=== PATIENT | female | born 1950 | race Caucasian/White ===

== ENCOUNTER 2020-03-14 13:27 | Inpatient (IN) ==
[2020-03-14] MEDS ORDERED: LACTATED RINGERS 1,000 ML IV ONE (13:45)
--- NOTE | 2020-03-14 14:03 | Emergency Department Note ---
Overdose HPI General Chief Complaint: Overdose Stated Complaint: overdose Time Seen by Provider: 03/14/20 13:41 Source: patient and RN notes reviewed Mode of arrival: ambulatory Limitations: altered mental status History of Present Illness HPI Narrative: Narrative: This patient says this morning she took a handful of her fluoxetine because she wanted to sleep. She then became concerned and felt a little jittery and so came to the hospital. Unclear exactly how many she took. She has no headache nausea vomiting no cough or shortness of breath. No abdominal pain. complaint: accidental overdose Onset (ago): hour(s) Intent: wanted to go to sleep Treatments Prior to Arrival: none Related Data Home Medications Medication Instructions Recorded Confirmed alendronate 35 mg PO WEEKLY 03/14/20 03/14/20 fluoxetine 40 mg PO DAILY 03/14/20 03/14/20 hydroxyzine HCl 10 mg PO BID PRN 03/14/20 03/14/20 lisinopril 10 mg PO DAILY 03/14/20 03/14/20 lorazepam 0.5 mg PO HS PRN 03/14/20 03/14/20 Previous Rx's Medication Instructions Recorded nitrofurantoin monohyd/m-cryst 100 mg PO BID #14 cap 03/14/20 [Macrobid] Allergies Allergy/AdvReac Type Severity Reaction Status Date / Time Sulfa (Sulfonamide Allergy Hives Verified 03/14/20 13:29 Antibiotics) Review of Systems ROS ROS Narrative: Narrative: All systems ED: reviewed and negative except as stated. Constitutional: Denies fever, chills and weakness Eyes: Denies vision change Cardiovascular: Denies chest pain and palpitations Respiratory: Denies shortness of breath and cough Gastrointestinal: Denies abdominal pain, nausea and vomiting Neurological: Denies headache, weakness, numbness and paresthesias [facility] Narrative Patient History Narrative: Narrative: Medical/Surgical/Family History All Active Problems (Updated 03/14/20 @ 18:08 by Judah Del Rio MD) Fall due to ice or snow (Acute) Dislocation, elbow, posterior (Acute) Elbow pain, right (Acute) Hyponatremia (Acute) Urinary tract infection (Acute) Drug overdose (Acute) Cigarette smoker (Chronic) Anxiety, generalized (Chronic) Organic dementia (Chronic) Alcohol abuse (Chronic) Self-care deficit for hygiene (Chronic) Medical History (Updated 03/14/20 @ 18:08 by Judah Del Rio MD) Alcohol abuse (Chronic) Anemia (Resolved) Anxiety, generalized (Chronic) Cigarette smoker (Chronic) Dehydration (Resolved) Dizziness and giddiness (Resolved) Nicotine withdrawal (Resolved) Organic dementia (Chronic) Self-care deficit for hygiene (Chronic) UTI (urinary tract infection) (Resolved) Social History Smoking Status: Current every day smoker Exam Narrative Narrative: Narrative: General Limitations: altered mental status Head Head: atraumatic, normocephalic and normal inspection Eye Eye: Present normal appearance, PERRL and EOMI; Absent scleral icterus, conjunctival injection and nystagmus ENT ENT: Present normal exam, normal oropharynx and mucous membranes moist Neck Neck: Present normal inspection Chest Chest: Present normal inspection and symmetric chest wall rise Respiratory Respiratory: Present normal lung sounds bilaterally; Absent respiratory distres s, rales/crackles and wheezes Cardiovascular Cardiovascular: Present regular rate, normal rhythm and normal heart sounds Adbominal Abdominal: Present soft; Absent distention and tenderness Extremities Extremities: Present normal inspection; Absent pedal edema and pretibial edema Neurological Neurological: Present alert Psychiatric Psychiatric: Present flat affect Skin Skin: Present diaphoresis Course Vital Signs Vital signs: Vital Signs Temperature 97.1 F 03/14/20 13:33 Pulse Rate 66 03/14/20 13:33 Respiratory Rate 22 03/14/20 13:33 Blood Pressure 111/97 03/14/20 13:33 Pulse Oximetry (%) 95 03/14/20 13:33 Temperature 97.1 F 03/14/20 13:33 Pulse Rate 58 L 03/14/20 17:46 Respiratory Rate 19 03/14/20 17:46 Blood Pressure 161/82 03/14/20 17:46 Pulse Oximetry (%) 94 03/14/20 17:46 [facility] MDM Narrative Medical decision making narrative: Narrative: Poison control was contacted and suggested we monitor the patient for about 6 ho urs. They were concerned about prolonged QT interval. Her first EKG showed slight prolongation but a second EKG a number of hours later did not show any evidence of that. She was hydrated and her urinary tract infection was treated with Levaquin. She requested some Prilosec and a GI cocktail for heartburn and that was given. Lab Data Lab results reviewed: Yes I reviewed the patient's lab results. Lab results narrative: Patient's lab work was unremarkable except for a urinary tract infection and signs of dehydration. Result diagrams: 03/14/20 14:00 03/14/20 14:00 Labs: Lab Results 03/14/20 03/14/20 03/14/20 Range/Units 14:00 14:00 14:20 WBC 11.2 H (4.50-11.00) K/mcL RBC 4.19 (3.59-5.38) M/mcL Hgb 13.6 (11.2-15.7) g/dL Hct 40.5 (34.1-44.9) % MCV 96.7 (80.0-100.0) fL MCH 32.5 (26.0-34.0) pg MCHC 33.6 (31.0-36.0) g/dL RDW 13.0 (11.5-14.5) % Plt Count 191 (140-440) K/mcL MPV 9.2 (7.4-10.4) fL Gran % 86.2 H (38.0-78.0) % Lymph % (Auto) 7.9 L (15.5-49.0) % [place] % (Auto) 5.6 (1.0-12.0) % Eos % (Auto) 0.1 (0.0-7.0) % Baso % (Auto) 0.2 (0.0-2.0) % Gran # 9.63 H (1.80-8.00) K/mcL Lymph # (Auto) 0.88 L (1.50-4.80) K/mcL [place] # (Auto) 0.62 (0.10-0.90) K/mcL Eos # (Auto) 0.01 (0.00-0.70) K/mcL Baso # (Auto) 0.02 (0.00-0.30) K/mcL VBG Lactic Acid (0.5-2.0) mmol/L Sodium 132 L (133-145) mmol/L Potassium 4.2 (3.3-5.1) mmol/L Chloride 95 L (96-108) mmol/L Carbon Dioxide 16 L (22-30) mmol/L Anion Gap 21.0 H (8-16) BUN 21 (8-23) mg/dl Creatinine 1.2 H (0.6-1.1) mg/dl GFR Calculation 45 Glucose 106 H (70-105) mg/dL Calcium 9.6 (8.6-10.4) mg/dl Total Bilirubin 0.4 (0.0-1.0) mg/dL AST 94 H (0-37) U/l ALT 100 H (0-40) U/l Alkaline Phosphatase 52 (39-117) U/L Total Protein 7.3 (5.9-8.4) gm/dL Albumin 4.4 (3.2-5.2) gm/dL Globulin 2.9 (2.2-3.7) gm/dL Albumin/Globulin Ratio 1.5 (1.0-2.3) Urine Color Urine Appearance Urine pH (5.0-9.0) Ur Specific [place] (1.000-1.035) Urine Protein (NEG) mg/dL Urine Glucose (UA) (NEG) mg/dL Urine Ketones (NEG) mg/dL Urine Occult Blood (<0.03) mg/dL Urine Nitrate (NEG) Urine Bilirubin (NEG) mg/dL Urine Urobilinogen (NEG) mg/dL Ur Leukocyte Esterase (NEG) /uL Urine RBC (0-1) /hpf Urine WBC (0-4) /hpf Ur Squamous Epith Cells (0-4) /hpf Urine Bacteria (0) /hpf Urine Mucus (0) /hpf Ur Culture Indicated? Salicylates mg/dL Urine Opiates Screen None detected (NONDETECTED) Ur Oxycodone Screen None detected (NONDETECTED) Urine Methadone Screen None detected (NONDETECTED) Acetaminophen ug/mL Ur Barbiturates Screen None detected (NONDETECTED) Ur Phencyclidine Scrn None detected (NONDETECTED) Ur Amphetamines Screen None detected (NONDETECTED) U Benzodiazepines Scrn None detected (NONDETECTED) Urine Cocaine Screen None detected (NONDETECTED) U Marijuana (THC) Screen None detected (NONDETECTED) Ethyl Alcohol (<0.010) gm/dl 03/14/20 03/14/20 03/14/20 Range/Units 14:20 14:24 14:24 WBC (4.50-11.00) K/mcL RBC (3.59-5.38) M/mcL Hgb (11.2-15.7) g/dL Hct (34.1-44.9) % MCV (80.0-100.0) fL MCH (26.0-34.0) pg MCHC (31.0-36.0) g/dL RDW (11.5-14.5) % Plt Count (140-440) K/mcL MPV (7.4-10.4) fL Gran % (38.0-78.0) % Lymph % (Auto) (15.5-49.0) % [place] % (Auto) (1.0-12.0) % Eos % (Auto) (0.0-7.0) % Baso % (Auto) (0.0-2.0) % Gran # (1.80-8.00) K/mcL Lymph # (Auto) (1.50-4.80) K/mcL [place] # (Auto) (0.10-0.90) K/mcL Eos # (Auto) (0.00-0.70) K/mcL Baso # (Auto) (0.00-0.30) K/mcL VBG Lactic Acid (0.5-2.0) mmol/L Sodium (133-145) mmol/L Potassium (3.3-5.1) mmol/L Chloride (96-108) mmol/L Carbon Dioxide (22-30) mmol/L Anion Gap (8-16) BUN (8-23) mg/dl Creatinine (0.6-1.1) mg/dl GFR Calculation Glucose (70-105) mg/dL Calcium (8.6-10.4) mg/dl Total Bilirubin (0.0-1.0) mg/dL AST (0-37) U/l ALT (0-40) U/l Alkaline Phosphatase (39-117) U/L Total Protein (5.9-8.4) gm/dL Albumin (3.2-5.2) gm/dL Globulin (2.2-3.7) gm/dL Albumin/Globulin Ratio (1.0-2.3) Urine Color Yellow Urine Appearance Cloudy Urine pH 5.0 (5.0-9.0) Ur Specific [place] 1.014 (1.000-1.035) Urine Protein 100 A (NEG) mg/dL Urine Glucose (UA) Negative (NEG) mg/dL Urine Ketones 5/tr A (NEG) mg/dL Urine Occult Blood Neg (<0.03) mg/dL Urine Nitrate Pos A (NEG) Urine Bilirubin Neg (NEG) mg/dL Urine Urobilinogen Neg (NEG) mg/dL Ur Leukocyte Esterase 500 A (NEG) /uL Urine RBC 0 (0-1) /hpf Urine WBC > 182 H (0-4) /hpf Ur Squamous Epith Cells 0 (0-4) /hpf Urine Bacteria Few A (0) /hpf Urine Mucus Few (0) /hpf Ur Culture Indicated? Yes Salicylates < 0.3 mg/dL Urine Opiates Screen (NONDETECTED) Ur Oxycodone Screen (NONDETECTED) Urine Methadone Screen (NONDETECTED) Acetaminophen < 5.0 ug/mL Ur Barbiturates Screen (NONDETECTED) Ur Phencyclidine Scrn (NONDETECTED) Ur Amphetamines Screen (NONDETECTED) U Benzodiazepines Scrn (NONDETECTED) Urine Cocaine Screen (NONDETECTED) U Marijuana (THC) Screen (NONDETECTED) Ethyl Alcohol < 0.010 (<0.010) gm/dl 03/14/20 Range/Units 15:55 WBC (4.50-11.00) K/mcL RBC (3.59-5.38) M/mcL Hgb (11.2-15.7) g/dL Hct (34.1-44.9) % MCV (80.0-100.0) fL MCH (26.0-34.0) pg MCHC (31.0-36.0) g/dL RDW (11.5-14.5) % Plt Count (140-440) K/mcL MPV (7.4-10.4) fL Gran % (38.0-78.0) % Lymph % (Auto) (15.5-49.0) % [place] % (Auto) (1.0-12.0) % Eos % (Auto) (0.0-7.0) % Baso % (Auto) (0.0-2.0) % Gran # (1.80-8.00) K/mcL Lymph # (Auto) (1.50-4.80) K/mcL [place] # (Auto) (0.10-0.90) K/mcL Eos # (Auto) (0.00-0.70) K/mcL Baso # (Auto) (0.00-0.30) K/mcL VBG Lactic Acid 0.7 (0.5-2.0) mmol/L Sodium (133-145) mmol/L Potassium (3.3-5.1) mmol/L Chloride (96-108) mmol/L Carbon Dioxide (22-30) mmol/L Anion Gap (8-16) BUN (8-23) mg/dl Creatinine (0.6-1.1) mg/dl GFR Calculation Glucose (70-105) mg/dL Calcium (8.6-10.4) mg/dl Total Bilirubin (0.0-1.0) mg/dL AST (0-37) U/l ALT (0-40) U/l Alkaline Phosphatase (39-117) U/L Total Protein (5.9-8.4) gm/dL Albumin (3.2-5.2) gm/dL Globulin (2.2-3.7) gm/dL Albumin/Globulin Ratio (1.0-2.3) Urine Color Urine Appearance Urine pH (5.0-9.0) Ur Specific [place] (1.000-1.035) Urine Protein (NEG) mg/dL Urine Glucose (UA) (NEG) mg/dL Urine Ketones (NEG) mg/dL Urine Occult Blood (<0.03) mg/dL Urine Nitrate (NEG) Urine Bilirubin (NEG) mg/dL Urine Urobilinogen (NEG) mg/dL Ur Leukocyte Esterase (NEG) /uL Urine RBC (0-1) /hpf Urine WBC (0-4) /hpf Ur Squamous Epith Cells (0-4) /hpf Urine Bacteria (0) /hpf Urine Mucus (0) /hpf Ur Culture Indicated? Salicylates mg/dL Urine Opiates Screen (NONDETECTED) Ur Oxycodone Screen (NONDETECTED) Urine Methadone Screen (NONDETECTED) Acetaminophen ug/mL Ur Barbiturates Screen (NONDETECTED) Ur Phencyclidine Scrn (NONDETECTED) Ur Amphetamines Screen (NONDETECTED) U Benzodiazepines Scrn (NONDETECTED) Urine Cocaine Screen (NONDETECTED) U Marijuana (THC) Screen (NONDETECTED) Ethyl Alcohol (<0.010) gm/dl Discharge Plan Patient/Caregiver Discharge Instructions Pt seen by COMMUNITY RELATIONS ASSISTANT/PA only: No Clinical Impression: Urinary tract infection Qualifiers: Urinary tract infection type: acute cystitis Hematuria presence: without hematuria Qualified Code(s): N30.00 - Acute cystitis without hematuria Drug overdose Qualifiers: Encounter type: initial encounter Injury intent: accidental or unintentional Qualified Code(s): T50.901A - Poisoning by unspecified drugs, medicaments and biological substances, accidental (unintentional), initial encounter Instructions: Urinary Tract Infection in Women (ED) Patient Disposition: Home, Self-Care Follow up with: Juanita Alexis ARNP [Primary Care Provider] - Prescriptions: New nitrofurantoin monohyd/m-cryst [Macrobid] 100 mg capsule 100 mg PO BID Qty: 14 RF: 0 No Action alendronate 35 mg tablet 35 mg PO WEEKLY RF: 0 lorazepam 0.5 mg tablet 0.5 mg PO HS PRN (Reason: Sleep) RF: 0 lisinopril 10 mg tablet 10 mg PO DAILY RF: 0 hydroxyzine HCl 10 mg tablet 10 mg PO BID PRN (Reason: Anxiety) RF: 0 fluoxetine 20 mg capsule 40 mg PO DAILY RF: 0
[2020-03-14 14:41] LABS: Basophils # (Auto) 0.02 K/mcL (0.00-0.30); Basophils % (Auto) 0.2 % (0.0-2.0); Eosinophils # (Auto) 0.01 K/mcL (0.00-0.70); Eosinophils % (Auto) 0.1 % (0.0-7.0); Granulocytes % (Auto) 86.2 % (38.0-78.0); Hematocrit 40.5 % (34.1-44.9); Hemoglobin 13.6 g/dL (11.2-15.7); Lymphocytes # (Auto) 0.88 K/mcL (1.50-4.80); Lymphocytes % (Auto) 7.9 % (15.5-49.0); Mean Cell Volume 96.7 fL (80.0-100.0); Mean Corpuscular HGB Conc 33.6 g/dL (31.0-36.0); Mean Platelet Volume 9.2 fL (7.4-10.4); Monocytes # (Auto) 0.62 K/mcL (0.10-0.90); Monocytes % (Auto) 5.6 % (1.0-12.0); Platelet Count 191 K/mcL (140-440); RBC 4.19 M/mcL (3.59-5.38); WBC 11.2 K/mcL (4.50-11.00)
[2020-03-14 14:55] LABS: Alcohol, Blood < 10.0 mg/dL (<10); Alcohol,Blood < 0.010 gm/dl (<0.010)
[2020-03-14 14:59] LABS: Amphetamine Screen,Urine NONE DETECTED (NONDETECTED); Barbiturate Screen,Urine NONE DETECTED (NONDETECTED); Benzodiazepines Screen,Urine NONE DETECTED (NONDETECTED); Cannabinoid Screen,Urine NONE DETECTED (NONDETECTED); Cocaine Screen,Urine NONE DETECTED (NONDETECTED); Opiate Screen,Urine NONE DETECTED (NONDETECTED); Oxycodone, Urine Screen NONE DETECTED (NONDETECTED); Phencyclidine Screen,Urine NONE DETECTED (NONDETECTED)
[2020-03-14 15:01] LABS: Acetaminophen < 5.0 ug/mL; Salicylate < 0.3 mg/dL
[2020-03-14 15:04] LABS: ALT/SGPT 100 U/l (0-40); AST/SGOT 94 U/l (0-37); Albumin 4.4 gm/dL (3.2-5.2); Albumin/Globulin Ratio 1.5 (1.0-2.3); Alkaline Phosphatase 52 U/L (39-117); Bilirubin,Total 0.4 mg/dL (0.0-1.0); Blood Urea Nitrogen 21 mg/dl (8-23); Calcium 9.6 mg/dl (8.6-10.4); Carbon Dioxide 16 mmol/L (22-30); Globulin 2.9 gm/dL (2.2-3.7); Glomerular Filtration Rate 45; Glucose 106 mg/dL (70-105)
[2020-03-14 15:06] LABS: Appearance,Urine CLOUDY; Bacteria,Urine FEW /hpf (0); Bilirubin,Urine NEG (NEG); Color,Urine YELLOW; Culture Indicated,Urine YES; Glucose,Urine (UA) NEGATIVE (NEG); Ketones,Urine 5/TR mg/dL (NEG); Leukocyte Esterase,Urine 500 /uL (NEG); Mucus,Urine FEW /hpf (0); Nitrate,Urine POS (NEG); Protein,Urine 100 mg/dL (NEG); Specific Gravity,Urine 1.014 (1.000-1.035); Urine Blood NEG mg/dL (<0.03); Urine RBC 0 /hpf (0-1); Urine Squamous Epithelial Cell 0 /hpf (0-4); Urine WBC > 182 /hpf (0-4); Urobilinogen,Urine NEG (NEG)
[2020-03-14 15:07] LABS: Chloride 95 mmol/L (96-108)
[2020-03-14] MEDS ORDERED: LEVOFLOXACIN 750 MG/150 ML BAG IV ONE (15:44)
[2020-03-14] MEDS ORDERED: PHENobarb/HYOSCY/ATROPINE/SCOP 1 DOSE BOTTLE PO ONE (17:10)
[2020-03-14] MEDS ORDERED: PANTOPRAZOLE 40 MG VIAL IV ONE (17:11)
--- NOTE | 2020-03-14 20:10 | Internal Med History&Physical ---
HPI History of Present Illness Patient information: Note initiated : 03/14/20 at 7:48 pm Service Date, if different from initiated Date: [] Patient: Nithya Shrestha a 69 y/o F admitted on for overdose. Chief Complaint: [] History of present illness: Ms. Shrestha is a 69 year old F presents the ED after taking extra doses of her fluoxetine. Patient does have insomnia and does have Lorazepam prescription for 0.5 mg at night as needed. Every once while she has a difficult night sleep and then chills catch up during the day. Last night she says she was up and down but did not know why she had such a bad sleep she also did not take her fluoxetine or other medications last night. Today about 11 AM she was really tired and wanted to go to sleep so she took her fluoxetine because she missed that the previous night and also felt that it would help her go to sleep so she took a few more and then some more after that they can the first ones did not help. She says she was tired and did not realize how many she was taking and she is in the habi t of putting in her mouth when she puts them in her hand. He believes she took anywhere between 6 and 10 pills. And these are 20 mg tablets she says. She called ems because she was concerned that she took so many. She states her arms and legs feel heavy and that this happens sometimes when she takes fluoxetine. She denies any headache fever chills nausea vomiting diarrhea chest pain. She has a little bit of a lower achy abdominal pain but no other complaints. In the ED she was evaluated and she had a mildly prolonged QTC on the first EKG which shortened on subsequent EKG. Poison control was contacted from the ED. Labs are concerning for volume depletion and she also had symptoms of dysuria and had a positive urinalysis. She was given IV fluids and a prescription for an antibiotic and would was getting ready to discharge but when she got up to go she was very weak and unstable on her feet and felt like she would easily fall. She lives alone at home and is felt it was an unsafe discharge. Review of Systems: Pertinent positive as above, chronic cough. Denies headache/fever/chills/nausea/vomiting/chest pain/dyspnea/diarrhea. Remaining 10 point review of system reviewed negative PFSH PFSH All Active Problems (Updated 03/14/20 @ 18:08 by Judah Del Rio MD) Fall due to ice or snow (Acute) Dislocation, elbow, posterior (Acute) Elbow pain, right (Acute) Hyponatremia (Acute) Urinary tract infection (Acute) Drug overdose (Acute) Cigarette smoker (Chronic) Anxiety, generalized (Chronic) Organic dementia (Chronic) Alcohol abuse (Chronic) Self-care deficit for hygiene (Chronic) Medical History (Updated 03/14/20 @ 18:08 by Judah Del Rio MD) Alcohol abuse (Chronic) Anemia (Resolved) Anxiety, generalized (Chronic) Cigarette smoker (Chronic) Dehydration (Resolved) Dizziness and giddiness (Resolved) Nicotine withdrawal (Resolved) Organic dementia (Chronic) Self-care deficit for hygiene (Chronic) UTI (urinary tract infection) (Resolved) Social History (Updated 03/14/20 @ 19:53 by Vern Tsang DO) smoking status: Current every day smoker additional history: Surgical history: Hernia repair and Family history: Mother diabetes in father hypertension Social history: Patient smokes quarter pack of cigarettes per day Has 1 beer a week Lives at home by herself in an apartment. MEDS/ALLERGIES Home Medications and Allergies Home Medications Medication Instructions Recorded Confirmed Type alendronate 35 mg PO WEEKLY 03/14/20 03/14/20 History fluoxetine 40 mg PO DAILY 03/14/20 03/14/20 History hydroxyzine HCl 10 mg PO BID PRN 03/14/20 03/14/20 History lisinopril 10 mg PO DAILY 03/14/20 03/14/20 History lorazepam 0.5 mg PO HS PRN 03/14/20 03/14/20 History nitrofurantoin monohyd/m-cryst 100 mg PO BID #14 cap 03/14/20 Rx [Macrobid] Allergies Allergy/AdvReac Type Severity Reaction Status Date / Time Sulfa (Sulfonamide Allergy Hives Verified 03/14/20 13:29 Antibiotics) EXAM Constitutional Vitals: Temp Pulse Resp BP Pulse Ox 97.1 F 62 18 124/73 98 03/14/20 13:33 03/14/20 19:31 03/14/20 19:31 03/14/20 19:31 03/14/20 19:31 Exam: General: Alert, Awake, No acute Distress Eyes/N/T: EOMI, PERRL, horizontal nystagmus, dry MM Head/Neck: neck supple, normocephalic atraumatic CV: RRR, No murmurs, normal s1/s2 Pulm: Clear b/l, no wheezing/rhonchi/rales Abd: soft, nontender, +BS x4 Ext: no clubbing/cyanosis/edema Neuro: Alert, no focal deficits, moves all extremities, CN 2-12 grossly intact, symmetrical strength b/l upper/lower, sensations intact b/l upper/lower. Skin: warm/dry No agitation hyperthermia diaphoresis hypertonia tremor or other signs concerning for serotonin syndrome. DATA Data Completed and Pending Labs: Labs from last 24 hours 03/14/20 03/14/20 03/14/20 15:55 14:24 14:24 WBC RBC Hgb Hct MCV MCH MCHC RDW Plt Count MPV Gran % Lymph % (Auto) [place] % (Auto) Eos % (Auto) Baso % (Auto) Gran # Lymph # (Auto) [place] # (Auto) Eos # (Auto) Baso # (Auto) VBG Lactic Acid 0.7 Sodium Potassium Chloride Carbon Dioxide Anion Gap BUN Creatinine GFR Calculation Glucose Calcium Total Bilirubin AST ALT Alkaline Phosphatase Total Protein Albumin Globulin Albumin/Globulin Ratio Urine Color Urine Appearance Urine pH Ur Specific [place] Urine Protein Urine Glucose (UA) Urine Ketones Urine Occult Blood Urine Nitrate Urine Bilirubin Urine Urobilinogen Ur Leukocyte Esterase Urine RBC Urine WBC Ur Squamous Epith Cells Urine Bacteria Urine Mucus Ur Culture Indicated? Salicylates < 0.3 Urine Opiates Screen Ur Opiates Confirm Ur Oxycodone Screen Urine Methadone Screen Ur Methadone Confirm Acetaminophen < 5.0 Ur Barbiturates Screen Ur Barbiturate Confirm Ur Phencyclidine Scrn Urine PCP Confirm Ur Amphetamines Screen U Amphetamines Confirm U Benzodiazepines Scrn U Benzodiazepine Confm Urine Cocaine Screen Urine Cocaine Confirm U Cannabinoids Confirm U Marijuana (THC) Screen Ethyl Alcohol < 0.010 03/14/20 03/14/20 03/14/20 14:20 14:20 14:00 WBC RBC Hgb Hct MCV MCH MCHC RDW Plt Count MPV Gran % Lymph % (Auto) [place] % (Auto) Eos % (Auto) Baso % (Auto) Gran # Lymph # (Auto) [place] # (Auto) Eos # (Auto) Baso # (Auto) VBG Lactic Acid Sodium 132 L Potassium 4.2 Chloride 95 L Carbon Dioxide 16 L Anion Gap 21.0 H BUN 21 Creatinine 1.2 H GFR Calculation 45 Glucose 106 H Calcium 9.6 Total Bilirubin 0.4 AST 94 H ALT 100 H Alkaline Phosphatase 52 Total Protein 7.3 Albumin 4.4 Globulin 2.9 Albumin/Globulin Ratio 1.5 Urine Color Yellow Urine Appearance Cloudy Urine pH 5.0 Ur Specific [place] 1.014 Urine Protein 100 A Urine Glucose (UA) Negative Urine Ketones 5/tr A Urine Occult Blood Neg Urine Nitrate Pos A Urine Bilirubin Neg Urine Urobilinogen Neg Ur Leukocyte Esterase 500 A Urine RBC 0 Urine WBC > 182 H Ur Squamous Epith Cells 0 Urine Bacteria Few A Urine Mucus Few Ur Culture Indicated? Yes Salicylates Urine Opiates Screen None detected Ur Opiates Confirm Not Reportable Ur Oxycodone Screen None detected Urine Methadone Screen None detected Ur Methadone Confirm Not Reportable Acetaminophen Ur Barbiturates Screen None detected Ur Barbiturate Confirm Not Reportable Ur Phencyclidine Scrn None detected Urine PCP Confirm Not Reportable Ur Amphetamines Screen None detected U Amphetamines Confirm Not Reportable U Benzodiazepines Scrn None detected U Benzodiazepine Confm Not Reportable Urine Cocaine Screen None detected Urine Cocaine Confirm Not Reportable U Cannabinoids Confirm Not Reportable U Marijuana (THC) Screen None detected Ethyl Alcohol 03/14/20 14:00 WBC 11.2 H RBC 4.19 Hgb 13.6 Hct 40.5 MCV 96.7 MCH 32.5 MCHC 33.6 RDW 13.0 Plt Count 191 MPV 9.2 Gran % 86.2 H Lymph % (Auto) 7.9 L [place] % (Auto) 5.6 Eos % (Auto) 0.1 Baso % (Auto) 0.2 Gran # 9.63 H Lymph # (Auto) 0.88 L [place] # (Auto) 0.62 Eos # (Auto) 0.01 Baso # (Auto) 0.02 VBG Lactic Acid Sodium Potassium Chloride Carbon Dioxide Anion Gap BUN Creatinine GFR Calculation Glucose Calcium Total Bilirubin AST ALT Alkaline Phosphatase Total Protein Albumin Globulin Albumin/Globulin Ratio Urine Color Urine Appearance Urine pH Ur Specific [place] Urine Protein Urine Glucose (UA) Urine Ketones Urine Occult Blood Urine Nitrate Urine Bilirubin Urine Urobilinogen Ur Leukocyte Esterase Urine RBC Urine WBC Ur Squamous Epith Cells Urine Bacteria Urine Mucus Ur Culture Indicated? Salicylates Urine Opiates Screen Ur Opiates Confirm Ur Oxycodone Screen Urine Methadone Screen Ur Methadone Confirm Acetaminophen Ur Barbiturates Screen Ur Barbiturate Confirm Ur Phencyclidine Scrn Urine PCP Confirm Ur Amphetamines Screen U Amphetamines Confirm U Benzodiazepines Scrn U Benzodiazepine Confm Urine Cocaine Screen Urine Cocaine Confirm U Cannabinoids Confirm U Marijuana (THC) Screen Ethyl Alcohol A/P Narrative A/P Narrative: A: *Generalized weakness/deconditioning/fall risk with unsteadiness on her feet: 2/2 volume depletion/uti/polypharmacy *SSRI Overdose on fluoxetine: States she took between 6 and 8 tablets to help her sleep, these are 20 mg pills. -In reviewing literature fluoxetine tends to be well-tolerated with ingestions of 2-3grams causing only minimal symptoms -Qtc ok, Poison control contacted from the ED. *Insomnia: on ativan qhs prn *Volume depletion: *Hyponatremia: *metabolic acidosis, AG: possibly starvation ketoacidosis -salicylates/apap levels ok, BAL neg. lactate wnl -ketones noted in urine *UTI: *mild transaminitis: *HTN P: -IVF's -f/u chemistry -prn benzo -rocephin pending UC - - -pt/ot -ppx: lovenox DNR Time Spent With Patient Time: Total time spent is greater than 50% in coordination of care (as docum ented) at patient's floor/unit and/or counseling patient:
[2020-03-14] MEDS ORDERED: cefTRIAXone 1 GM in DEXTROSE 5% IN WATER 50 ML IV SCH (21:06)
[2020-03-14] MEDS ORDERED: SENNOSIDES 1 TABLET PO PRN (21:06)
[2020-03-14] MEDS ORDERED: IPRATROPIUM/ALBUTEROL 3 ML AMPUL.NEB NEB PRN (21:06)
[2020-03-14] MEDS ORDERED: ONDANSETRON 4 MG/2 ML VIAL IV PRN (21:06)
[2020-03-14] MEDS ORDERED: LACTULOSE 20 GM/30 ML ORAL.SOL PO PRN (21:06)
[2020-03-14] MEDS ORDERED: hydrOXYzine 10 MG TABLET PO PRN (21:06)
[2020-03-14] MEDS ORDERED: LACTATED RINGERS 1,000 ML IV SCH (21:06)
[2020-03-14] MEDS: 0.9 % SODIUM CHLORIDE 10 ML SYRINGE IV SCH (22:26)
[2020-03-14] MEDS: cefTRIAXone 1 GM VIAL IV SCH (22:29)
[2020-03-14] MEDS: DOCUSATE SODIUM 100 MG CAPSULE PO SCH (22:30)
[2020-03-14] MEDS: MELATONIN 3 MG TABLET PO SCH (22:30)
[2020-03-15] MEDS: LORazepam 0.5 MG TABLET PO PRN ×2 (00:26→20:17)
[2020-03-15] MEDS: 0.9 % SODIUM CHLORIDE 10 ML SYRINGE IV SCH ×3 (05:33→20:17)
[2020-03-15 06:49] LABS: Basophils # (Auto) 0.03 K/mcL (0.00-0.30); Basophils % (Auto) 0.4 % (0.0-2.0); Eosinophils # (Auto) 0.04 K/mcL (0.00-0.70); Eosinophils % (Auto) 0.6 % (0.0-7.0); Granulocytes % (Auto) 75.2 % (38.0-78.0); Hematocrit 35.8 % (34.1-44.9); Hemoglobin 11.9 g/dL (11.2-15.7); Lymphocytes # (Auto) 1.04 K/mcL (1.50-4.80); Lymphocytes % (Auto) 15.4 % (15.5-49.0); Mean Cell Volume 99.7 fL (80.0-100.0); Mean Corpuscular HGB Conc 33.2 g/dL (31.0-36.0); Mean Platelet Volume 9.4 fL (7.4-10.4); Monocytes # (Auto) 0.57 K/mcL (0.10-0.90); Monocytes % (Auto) 8.4 % (1.0-12.0); Platelet Count 154 K/mcL (140-440); RBC 3.59 M/mcL (3.59-5.38); Red Cell Distribution Width 13.4 % (11.5-14.5); WBC 6.8 K/mcL (4.50-11.00)
[2020-03-15 07:05] LABS: Bilirubin,Direct < 0.2 mg/dL (0.0-0.3); Chloride 98 mmol/L (96-108)
[2020-03-15 07:14] LABS: ALT/SGPT 76 U/l (0-40); AST/SGOT 62 U/l (0-37); Albumin 3.6 gm/dL (3.2-5.2); Albumin/Globulin Ratio 1.7 (1.0-2.3); Alkaline Phosphatase 43 U/L (39-117); Bilirubin,Total 0.3 mg/dL (0.0-1.0); Blood Urea Nitrogen 17 mg/dl (8-23); Calcium 8.4 mg/dl (8.6-10.4); Carbon Dioxide 17 mmol/L (22-30); Globulin 2.1 gm/dL (2.2-3.7); Glomerular Filtration Rate 64; Glucose 94 mg/dL (70-105); Lactate Dehydrogenase 298 U/L (94-250); Phosphorous 2.3 mg/dL (2.7-4.5); Triglycerides 74 mg/dl (<150); Uric Acid 6.2 mg/dL (2.5-8.0)
[2020-03-15] MEDS ORDERED: SODIUM CHLORIDE 1 GM TABLET PO ONE (08:33)
--- NOTE | 2020-03-15 08:35 | Internal Med Progress Note ---
SUBJECTIVE Subjective Patient information: Note initiated : 03/15/20 at 8:30 am Service Date, if different from initiated Date: [] Patient: Nithya Shrestha a 69 y/o F admitted on 03/14/20 for overdose. Chief Complaint: [] Interval history: History of present illness: Ms. Shrestha is a 69 year old F presents the ED after taking extra doses of her fluoxetine. Patient does have insomnia and does have Lorazepam prescription for 0.5 mg at night as needed. Every once while she has a difficult night sleep and then chills catch up during the day. Last night she says she was up and down but did not know why she had such a bad sleep she also did not take her fluoxetine or other medications last night. Today about 11 AM she was really tired and wanted to go to sleep so she took her fluoxetine because she missed that the previous night and also felt that it would help her go to sleep so she took a few more and then some more after that they can the first ones did not help. She says she was tired and did not realize how many she was taking and she is in the habit of putting in her mouth when she puts them in her hand. He believes she took anywhere between 6 and 10 pills. And these are 20 mg tablets she says. She called ems because she was concerned that she took so many. She states her arms and legs feel heavy and that this happens sometimes when she takes fluoxetine. She denies any headache fever chills nausea vomiting diarrhea chest pain. She has a little bit of a lower achy abdominal pain but no other complaints. In the ED she was evaluated and she had a mildly prolonged QTC on the first EKG which shortened on subsequent EKG. Poison control was contacted from the ED. Labs are concerning for volume depletion and she also had symptoms of dysuria and had a positive urinalysis. She was given IV fluids and a prescription for an antibiotic and would was getting ready to discharge but when she got up to go she was very weak and unstable on her feet and felt like she would easily fall. She lives alone at home and is felt it was an unsafe discharge. 9/7 Still weak but feels better overall. Poor sleep last night. No seizures. Review of Systems: denies headache/fever/chills/nausea/vomiting/chest or abdominal pain/c ough/dyspnea/diarrhea. Otherwise see above. Constitutional Vitals: Vital Signs Temp Pulse Resp BP Pulse Ox 97.3 F 57 L 18 141/56 97 03/15/20 08:01 03/15/20 08:01 03/15/20 08:01 03/15/20 08:01 03/15/20 08:01 Period Temp Pulse Resp BP Sys/[place] Pulse Ox Last 24 Hr 97.0 F-98.7 F 57-67 12-22 106-166/56-119 93-98 Intake and Output 03/14/20 03/15/20 03/15/20 21:59 05:59 13:59 Intake Total 1150 200 Output Total 500 Balance 1150 -300 Weight 70.216 kg Intake & Output: Intake & Output 03/14/20 03/15/20 03/15/20 21:59 05:59 13:59 Intake Total 1150 200 Output Total 500 Balance 1150 -300 Weight 70.216 kg Intake: IV 1150 Lactated Ringers 1,000 ml @ 1000 Wide Open IV BOLUS ONE Rx#: [id number] Oral 200 Output: Void Amount 500 Other: Meal snack Percent of Meal Consumed 50% Feeding Ability Independent Urine Appearance Cloudy Cloudy Urine Color Bright Yellow Bright Yellow # Bowel Movements 0 Exam: General: Alert, Awake, No acute Distress Eyes/N/T: EOMI, PERRL, Head/Neck: neck supple, CV: RRR, No murmurs, Pulm: Clear b/l, no wheezing/rhonchi/rales Abd: soft, nontender, +BS x4 Ext: no clubbing/cyanosis/edema Neuro: Alert, no focal deficits, moves all extremities, Skin: warm/dry OBJ DATA Labs CBC & Chem 7: 03/15/20 05:15 03/15/20 05:15 Labs: Abnormal Lab Results 03/15/20 03/15/20 03/14/20 05:15 05:15 14:20 WBC Gran % Lymph % (Auto) 15.4 L Gran # Lymph # (Auto) 1.04 L Sodium 129 L Chloride Carbon Dioxide 17 L Anion Gap Creatinine Glucose Calcium 8.4 L Phosphorus 2.3 L AST 62 H ALT 76 H Lactate Dehydrogenase 298 H Total Protein 5.7 L Globulin 2.1 L Urine Protein 100 A Urine Ketones 5/tr A Urine Nitrate Pos A Ur Leukocyte Esterase 500 A Urine WBC > 182 H Urine Bacteria Few A 03/14/20 03/14/20 14:00 14:00 WBC 11.2 H Gran % 86.2 H Lymph % (Auto) 7.9 L Gran # 9.63 H Lymph # (Auto) 0.88 L Sodium 132 L Chloride 95 L Carbon Dioxide 16 L Anion Gap 21.0 H Creatinine 1.2 H Glucose 106 H Calcium Phosphorus AST 94 H ALT 100 H Lactate Dehydrogenase Total Protein Globulin Urine Protein Urine Ketones Urine Nitrate Ur Leukocyte Esterase Urine WBC Urine Bacteria Meds: Medications Albuterol/Ipratropium (Duoneb) 3 ml NEB Q4HRT PRN PRN Reason: dyspnea Ceftriaxone Sodium (Rocephin) 1 gm IV Q24H [facility] Last Admin: 03/14/20 22:29 Dose: 1 gm Documented by: Docusate Sodium (Colace) 100 mg PO BID [facility] Last Admin: 03/14/20 22:30 Dose: 100 mg Documented by: Enoxaparin Sodium (Lovenox) 40 mg SQ DAILY [facility] Fluoxetine HCl (Prozac) 40 mg PO DAILY [facility] Hydroxyzine HCl (Vistaril) 10 mg PO BID PRN PRN Reason: Anxiety Lactated Ringer's (Lactated Ringers) 1,000 mls @ 84 mls/hr IV .[id number] [facility] Stop: 03/15/20 09:00 Last Admin: 03/14/20 21:27 Dose: 84 mls/hr Documented by: Lactulose (Cephulac) 10 gm PO DAILYP PRN PRN Reason: Constipation Lisinopril (Zestril) 10 mg PO DAILY [facility] Lorazepam (Ativan) 0.5 mg PO HS PRN PRN Reason: Sleep Last Admin: 03/15/20 00:26 Dose: 0.5 mg Documented by: Lorazepam (Ativan) 0.5 mg IV Q4-6HP PRN PRN Reason: ANXIETY/SEDATION Melatonin (Melatonin 3mg Tablet) 3 mg PO QHS [facility] Last Admin: 03/14/20 22:30 Dose: 3 mg Documented by: Ondansetron HCl (Zofran) 4 mg IV Q4HP PRN; Protocol PRN Reason: Nausea And Vomiting Senna (Senokot) 2 tab PO HSP PRN PRN Reason: Constipation Sodium Chloride (Saline Flush) 10 ml IV Q8 [facility] Last Admin: 03/15/20 05:33 Dose: Not Given Documented by: A/P Narrative A/P Narrative: A: *Generalized weakness/deconditioning/fall risk with unsteadiness on her feet: 2/2 volume depletion/uti/polypharmacy *SSRI Overdose on fluoxetine: States she took between 6 and 8 tablets to help her sleep, these are 20 mg pills. -In reviewing literature fluoxetine tends to be well-tolerated with ingestions of 2-3grams causing only minimal symptoms -Qtc ok, Poison control contacted from the ED. *Insomnia: on ativan qhs prn *Volume depletion: improved *Hyponatremia: *metabolic acidosis, AG: possibly starvation ketoacidosis -salicylates/apap levels ok, BAL neg. lactate wnl -ketones noted in urine *UTI: *mild transaminitis: improving *HTN P: -IVF's d/c -f/u chemistry -prn benzo -rocephin pending UC - -pt/ot -ppx: lovenox DNR Time Spent With Patient Time: Total time spent is greater than 50% in coordination of care (as documented) at patient's floor/unit and/or counseling patient: QUALITY VTE Deep Vein Thrombosis/Pulmonary Embolism Present on Admission: No
[2020-03-15] MEDS: cefTRIAXone 1 GM VIAL IV SCH (09:13)
[2020-03-15] MEDS: LISINOPRIL 10 MG TABLET PO SCH (09:14)
[2020-03-15] MEDS: FLUoxetine HCL 20 MG CAPSULE PO SCH (09:15)
[2020-03-15] MEDS: SODIUM BICARBONATE 650 MG TABLET PO SCH ×2 (09:15→20:17)
[2020-03-15] MEDS: ENOXAPARIN 40 MG/0.4 ML SYRINGE SQ SCH (09:16)
[2020-03-15] MEDS: DOCUSATE SODIUM 100 MG CAPSULE PO SCH ×2 (09:30→20:16)
[2020-03-15] MEDS ORDERED: SUCRALFATE 1 GM/10 ML ORAL.SUSP PO ONE (11:09)
[2020-03-15] MEDS ORDERED: MAG HYDROX/AL HYDROX/SIMETH 30 ML ORAL.SUSP PO PRN (11:09)
--- NOTE | 2020-03-15 14:57 | Discharge Summary ---
Discharge Provider Provider Patient information: Note initiated : 03/15/20 at 2:56 pm Service Date, if different from initiated Date: [] Patient: Nithya Shrestha a 69 y/o F admitted on 03/14/20 for overdose. Chief Complaint: [] Date of admission: 03/14/20 20:55 Discharge date: 03/17/20 Primary care physician: Juanita Alexis Consults: 03/14/20 Consult to Physician [CONS] Stat Comment: Consulting Provider: Vern Tsang Reason For Exam: Physician to Consult Discharge Meds Discharge Medications Home Medications alendronate 35 mg PO WEEKLY 03/14/20 [History Confirmed 03/14/20 Last Taken 03/09/20 09:00] fluoxetine 40 mg PO DAILY 03/14/20 [History Confirmed 03/14/20 Last Taken 03/14/20 07:00] hydroxyzine HCl 10 mg PO BID PRN 03/14/20 [History Confirmed 03/14/20 Last Taken 03/07/20 07:00] lisinopril 10 mg PO HS 03/14/20 [History Confirmed 03/14/20 Last Taken 03/12/20 19:30] lorazepam 0.5 mg PO HS PRN 03/14/20 [History Confirmed 03/14/20 Last Taken 03/12/20 20:00] omeprazole 20 mg PO DAILY 03/14/20 [History Confirmed 03/14/20 Last Taken 03/12/20 06:00] COURSE Hospital Course Hospital course: Interval history: History of present illness: Ms. Shrestha is a 69 year old F presents the ED after taking extra doses of her fluoxetine. Patient does have insomnia and does have Lorazepam prescription for 0.5 mg at night as needed. Every once while she has a difficult night sleep and then chills catch up during the day. Last night she says she was up and down but did not know why she had such a bad sleep she also did not take her fluoxetine or other medications last night. Today about 11 AM she was really tired and wanted to go to sleep so she took her fluoxetine because she missed that the previous night and also felt that it would help her go to sleep so she took a few more and then some more after that they can the first ones did not help. She says she was tired and did not realize how many she was taking and she is in the habit of putting in her mouth when she puts them in her hand. He believes she took anywhere between 6 and 10 pills. And these are 20 mg tablets she says. She called ems because she was concerned that she took so many. She states her arms and legs feel heavy and that this happens sometimes when she takes fluoxetine. She denies any headache fever chills nausea vomiting diarrhea chest pain. She has a little bit of a lower achy abdominal pain but no other complaints. In the ED she was evaluated and she had a mildly prolonged QTC on the first EKG which shortened on subsequent EKG. Poison control was contacted from the ED. Labs are concerning for volume depletion and she also had symptoms of dysuria and had a positive urinalysis. She was given IV fluids and a prescription for an antibiotic and would was getting ready to discharge but when she got up to go she was very weak and unstable on her feet and felt like she would easily fall. She lives alone at home and is felt it was an unsafe discharge. 9/7 Still weak but feels better overall. Poor sleep last night. No seizures. 9/8 Confusion overnight. At time of visit her midmorning she seemed pretty clear. There is concerned that she is unable to really care for herself at home especially with taking oral medications. I wonder about an underlying psych issue or some degree of dementia. She says she feels a lot better today. Less weak. She was alert and oriented x4 when I talked to her. New history is that she did have a traumatic brain injury several years ago and the daughter says she has not been the same since. A: *Generalized weakness/deconditioning/fall risk with unsteadiness on her feet: 2/2 volume depletion/uti/polypharmacy *SSRI Overdose on fluoxetine: States she took between 6 and 8 tablets to help her sleep, these are 20 mg pills. -In reviewing literature fluoxetine tends to be well-tolerated with ingestions of 2-3grams causing only minimal symptoms -Qtc ok, Poison control contacted from the ED. *Insomnia: on ativan qhs prn *Volume depletion: improved *Hyponatremia: *metabolic acidosis, AG: possibly starvation ketoacidosis -salicylates/apap levels ok, BAL neg. lactate wnl -ketones noted in urine *UTI: *mild transaminitis: improving *HTN *TBI with cognitive impairment Discharge diagnosis: Generalized weakness deconditioning fluoxetine overdose insomnia volume dep Secondary discharge diagnosis: Hyponatremia metabolic acidosis UTI mild transaminitis hypertension Time Spent with Patient Time attestation: Total time spent providing and/or coordinating discharge services: Time spent: Greater than 30 minutes EXAM Constitutional Vitals: Temp Pulse Resp BP Pulse Ox 98.5 F 63 20 143/70 96 03/15/20 12:01 03/15/20 14:20 03/15/20 14:20 03/15/20 12:01 03/15/20 14:20 Discharge Data Data Completed and Pending Labs on day of discharge: Labs from last 24 hours 03/15/20 03/15/20 03/15/20 05:15 05:15 05:15 WBC 6.8 RBC 3.59 Hgb 11.9 Hct 35.8 MCV 99.7 MCH 33.1 MCHC 33.2 RDW 13.4 Plt Count 154 MPV 9.4 Gran % 75.2 Lymph % (Auto) 15.4 L [place] % (Auto) 8.4 Eos % (Auto) 0.6 Baso % (Auto) 0.4 Gran # 5.08 Lymph # (Auto) 1.04 L [place] # (Auto) 0.57 Eos # (Auto) 0.04 Baso # (Auto) 0.03 VBG Lactic Acid Sodium 129 L Potassium 3.8 Chloride 98 Carbon Dioxide 17 L Anion Gap 14.0 BUN 17 Creatinine 0.9 GFR Calculation 64 Glucose 94 Uric Acid 6.2 Calcium 8.4 L Phosphorus 2.3 L Magnesium 2.1 Total Bilirubin 0.3 Direct Bilirubin < 0.2 GGT 30 AST 62 H ALT 76 H Alkaline Phosphatase 43 Lactate Dehydrogenase 298 H Total Protein 5.7 L Albumin 3.6 Globulin 2.1 L Albumin/Globulin Ratio 1.7 Triglycerides 74 TSH 0.72 Urine Color Urine Appearance Urine pH Ur Specific [place] Urine Protein Urine Glucose (UA) Urine Ketones Urine Occult Blood Urine Nitrate Urine Bilirubin Urine Urobilinogen Ur Leukocyte Esterase Urine RBC Urine WBC Ur Squamous Epith Cells Urine Bacteria Urine Mucus Ur Culture Indicated? Salicylates Urine Opiates Screen Ur Opiates Confirm Ur Oxycodone Screen Urine Methadone Screen Ur Methadone Confirm Acetaminophen Ur Barbiturates Screen Ur Barbiturate Confirm Ur Phencyclidine Scrn Urine PCP Confirm Ur Amphetamines Screen U Amphetamines Confirm U Benzodiazepines Scrn U Benzodiazepine Confm Urine Cocaine Screen Urine Cocaine Confirm U Cannabinoids Confirm U Marijuana (THC) Screen 03/14/20 03/14/20 03/14/20 15:55 14:24 14:20 WBC RBC Hgb Hct MCV MCH MCHC RDW Plt Count MPV Gran % Lymph % (Auto) [place] % (Auto) Eos % (Auto) Baso % (Auto) Gran # Lymph # (Auto) [place] # (Auto) Eos # (Auto) Baso # (Auto) VBG Lactic Acid 0.7 Sodium Potassium Chloride Carbon Dioxide Anion Gap BUN Creatinine GFR Calculation Glucose Uric Acid Calcium Phosphorus Magnesium Total Bilirubin Direct Bilirubin GGT AST ALT Alkaline Phosphatase Lactate Dehydrogenase Total Protein Albumin Globulin Albumin/Globulin Ratio Triglycerides TSH Urine Color Yellow Urine Appearance Cloudy Urine pH 5.0 Ur Specific [place] 1.014 Urine Protein 100 A Urine Glucose (UA) Negative Urine Ketones 5/tr A Urine Occult Blood Neg Urine Nitrate Pos A Urine Bilirubin Neg Urine Urobilinogen Neg Ur Leukocyte Esterase 500 A Urine RBC 0 Urine WBC > 182 H Ur Squamous Epith Cells 0 Urine Bacteria Few A Urine Mucus Few Ur Culture Indicated? Yes Salicylates < 0.3 Urine Opiates Screen Ur Opiates Confirm Ur Oxycodone Screen Urine Methadone Screen Ur Methadone Confirm Acetaminophen < 5.0 Ur Barbiturates Screen Ur Barbiturate Confirm Ur Phencyclidine Scrn Urine PCP Confirm Ur Amphetamines Screen U Amphetamines Confirm U Benzodiazepines Scrn U Benzodiazepine Confm Urine Cocaine Screen Urine Cocaine Confirm U Cannabinoids Confirm U Marijuana (THC) Screen 03/14/20 03/14/20 14:20 14:00 WBC RBC Hgb Hct MCV MCH MCHC RDW Plt Count MPV Gran % Lymph % (Auto) [place] % (Auto) Eos % (Auto) Baso % (Auto) Gran # Lymph # (Auto) [place] # (Auto) Eos # (Auto) Baso # (Auto) VBG Lactic Acid Sodium 132 L Potassium 4.2 Chloride 95 L Carbon Dioxide 16 L Anion Gap 21.0 H BUN 21 Creatinine 1.2 H GFR Calculation 45 Glucose 106 H Uric Acid Calcium 9.6 Phosphorus Magnesium Total Bilirubin 0.4 Direct Bilirubin GGT AST 94 H ALT 100 H Alkaline Phosphatase 52 Lactate Dehydrogenase Total Protein 7.3 Albumin 4.4 Globulin 2.9 Albumin/Globulin Ratio 1.5 Triglycerides TSH Urine Color Urine Appearance Urine pH Ur Specific [place] Urine Protein Urine Glucose (UA) Urine Ketones Urine Occult Blood Urine Nitrate Urine Bilirubin Urine Urobilinogen Ur Leukocyte Esterase Urine RBC Urine WBC Ur Squamous Epith Cells Urine Bacteria Urine Mucus Ur Culture Indicated? Salicylates Urine Opiates Screen None detected Ur Opiates Confirm Not Reportable Ur Oxycodone Screen None detected Urine Methadone Screen None detected Ur Methadone Confirm Not Reportable Acetaminophen Ur Barbiturates Screen None detected Ur Barbiturate Confirm Not Reportable Ur Phencyclidine Scrn None detected Urine PCP Confirm Not Reportable Ur Amphetamines Screen None detected U Amphetamines Confirm Not Reportable U Benzodiazepines Scrn None detected U Benzodiazepine Confm Not Reportable Urine Cocaine Screen None detected Urine Cocaine Confirm Not Reportable U Cannabinoids Confirm Not Reportable U Marijuana (THC) Screen None detected Discharge Plan Patient/Caregiver Discharge Instructions Activity: increase activity as tolerated Diet: Regular Diet Instructions: Fluoxetine (By mouth), Urinary Tract Infection in Women (GEN), Weakness (GEN), Medication Safety for Older Adults (GEN) Activity Restrictions/Additional Instructions: [facility] with contact you after discharge. If you have any questions call We are sending information home with you on Advanced Directives and the number for Aging and Rn Emergency Room Care Please follow up with primary care physician with clarification if you have or have not received this years flu vaccine at their office. Was not administered during your stay due to this. This discharge packet is provided to you to help keep you informed about your care. We want to ensure you get everything you need when you go home. You will also be receiving a call from us in a few days to follow up with you and see how you are doing since your discharge. This gives us a chance to listen to any concerns you maybe experiencing since you were discharged or any additional needs you may have, as well as providing us feedback on your care experience. We strive to always provide excellent care and thank you for your feedback and for choosing [facility]. Prescriptions: Continued alendronate 35 mg tablet 35 mg PO WEEKLY RF: 0 lorazepam 0.5 mg tablet 0.5 mg PO HS PRN (Reason: Sleep) RF: 0 lisinopril 10 mg tablet 10 mg PO HS RF: 0 hydroxyzine HCl 10 mg tablet 10 mg PO BID PRN (Reason: Anxiety) RF: 0 fluoxetine 20 mg capsule 40 mg PO DAILY RF: 0 omeprazole 20 mg Capsule,Delayed Release(Dr/Ec) 20 mg PO DAILY RF: 0 Follow Up Plan Follow up with: Juanita Alexis ARNP [Primary Care Provider] - 03/22/20 10:00 am (Please check in 15 minutes early Please inquire about recieving a influenza vaccine.) Patient Disposition: Home Health Service Prognosis: Fair Discharge Orders: Discharge Order (Routine); Ordered 03/17/20 [facility] Th[facility]/Pulmonary Embolism Present on Admission: No
[2020-03-15] MEDS: MELATONIN 3 MG TABLET PO SCH (20:17)
[2020-03-15] MEDS: LORazepam 2 MG/ML VIAL IV PRN ×2 (23:21→23:23)
[2020-03-16] MEDS: 0.9 % SODIUM CHLORIDE 10 ML SYRINGE IV SCH ×3 (05:50→20:54)
[2020-03-16 08:01] LABS: ALT/SGPT 83 U/l (0-40); AST/SGOT 61 U/l (0-37); Albumin 3.7 gm/dL (3.2-5.2); Albumin/Globulin Ratio 1.7 (1.0-2.3); Alkaline Phosphatase 40 U/L (39-117); Bilirubin,Direct < 0.2 mg/dL (0.0-0.3); Bilirubin,Total 0.2 mg/dL (0.0-1.0); Blood Urea Nitrogen 19 mg/dl (8-23); Calcium 8.7 mg/dl (8.6-10.4); Carbon Dioxide 22 mmol/L (22-30); Chloride 102 mmol/L (96-108); Globulin 2.2 gm/dL (2.2-3.7); Glomerular Filtration Rate 74; Glucose 107 mg/dL (70-105); Lactate Dehydrogenase 270 U/L (94-250); Phosphorous 2.3 mg/dL (2.7-4.5); Triglycerides 50 mg/dl (<150); Uric Acid 5.5 mg/dL (2.5-8.0)
[2020-03-16] MEDS: DOCUSATE SODIUM 100 MG CAPSULE PO SCH ×2 (08:42→20:54)
[2020-03-16] MEDS: FLUoxetine HCL 20 MG CAPSULE PO SCH (08:43)
[2020-03-16] MEDS: ENOXAPARIN 40 MG/0.4 ML SYRINGE SQ SCH (08:43)
[2020-03-16] MEDS: OMEPRAZOLE 20 MG CAPSULE PO SCH (08:43)
[2020-03-16] MEDS: LISINOPRIL 10 MG TABLET PO SCH (08:43)
[2020-03-16] MEDS: cefTRIAXone 1 GM VIAL IV SCH (09:00)
[2020-03-16] MEDS ORDERED: FLU VACC QS2020-21(6MOS UP)/PF 60 MCG/0.5 ML SYRINGE IM ONE (10:00)
--- NOTE | 2020-03-16 10:10 | Internal Med Progress Note ---
SUBJECTIVE Subjective Patient information: Note initiated : 03/16/20 at 10:04 am Service Date, if different from initiated Date: [] Patient: Nithya Shrestha a 69 y/o F admitted on 03/14/20 for overdose. Chief Complaint: [] Interval history: History of present illness: Ms. Shrestha is a 69 year old F presents the ED after taking extra doses of her fluoxetine. Patient does have insomnia and does have Lorazepam prescription for 0.5 mg at night as needed. Every once while she has a difficult night sleep and then chills catch up during the day. Last night she says she was up and down but did not know why she had such a bad sleep she also did not take her fluoxetine or other medications last night. Today about 11 AM she was really tired and wanted to go to sleep so she took her fluoxetine because she missed that the previous night and also felt that it would help her go to sleep so she took a few more and then some more after that they can the first ones did not help. She says she was tired and did not realize how many she was taking and she is in the habit of putting in her mouth when she puts them in her hand. He believes she took anywhere between 6 and 10 pills. And these are 20 mg tablets she says. She called ems because she was concerned that she took so many. She states her arms and legs feel heavy and that this happens sometimes when she takes fluoxetine. She denies any headache fever chills nausea vomiting diarrhea chest pain. She has a little bit of a lower achy abdominal pain but no other complaints. In the ED she was evaluated and she had a mildly prolonged QTC on the first EKG which shortened on subsequent EKG. Poison control was contacted from the ED. Labs are concerning for volume depletion and she also had symptoms of dysuria and had a positive urinalysis. She was given IV fluids and a prescription for an antibiotic and would was getting ready to discharge but when she got up to go she was very weak and unstable on her feet and felt like she would easily fall. She lives alone at home and is felt it was an unsafe discharge. 9/7 Still weak but feels better overall. Poor sleep last night. No seizures. 9/8 Confusion overnight. At time of visit her midmorning she seemed pretty clear. There is concerned that she is unable to really care for herself at home especially with taking oral medications. I wonder about an underlying psych issue or some degree of dementia. She says she feels a lot better today. Less weak. She was alert and oriented x4 when I talked to her. Review of Systems: denies headache/fever/chills/nausea/vomiting/chest or abdominal pain/cough/dyspnea/diarrhea. Otherwise see above. Constitutional Vitals: Vital Signs Temp Pulse Resp BP Pulse Ox 97.3 F 60 18 127/73 97 03/16/20 09:41 03/16/20 08:00 03/16/20 09:41 03/16/20 09:41 03/16/20 09:41 Period Temp Pulse Resp BP Sys/[place] Pulse Ox Last 24 Hr 97.3 F-98.5 F 52-63 12-32 120-144/61-86 94-100 Intake and Output 03/15/20 03/16/20 03/16/20 21:59 05:59 13:59 Intake Total 1640 125 Output Total 275 450 Balance 1365 -325 Weight 71.214 kg Intake & Output: Intake & Output 03/15/20 03/16/20 03/16/20 21:59 05:59 13:59 Intake Total 1640 125 Output Total 275 450 Balance 1365 -325 Weight 71.214 kg Intake: Nourishment/Supplement quantity 120 (ml) IV 1000 Lactated Ringers 1,000 ml @ 84 1000 mls/hr IV .[id number] [facility] Rx#: [id number] Oral 520 125 Output: Void Amount 275 450 Other: Meal Dinner Percent of Meal Consumed 50% Feeding Ability Assist with Tray Set Up Nourishment/Supplement name Eddie Bolanos Patient reports too sweet Urine Appearance Cloudy Clear Clear Urine Color Bright Yellow Dark Yellow Bright Yellow Urine Odor Normal Normal Stool Color Brown Stool Consistency Normal for Patient Exam: General: Alert, Awake, No acute Distress Eyes/N/T: EOMI, Head/Neck: neck supple, CV: RRR, No murmurs, Pulm: Clear b/l, no wheezing/rhonchi/rales Abd: soft, nontender, +BS x4 Ext: no clubbing/cyanosis/edema Neuro: A&Os4, no focal deficits, moves all extremities, Skin: warm/dry OBJ DATA Labs CBC & Chem 7: 03/15/20 05:15 03/16/20 04:37 Labs: Abnormal Lab Results 03/16/20 03/15/20 03/15/20 04:37 05:15 05:15 WBC Gran % Lymph % (Auto) 15.4 L Gran # Lymph # (Auto) 1.04 L Sodium 129 L Chloride Carbon Dioxide 17 L Anion Gap Creatinine Glucose 107 H Calcium 8.4 L Phosphorus 2.3 L 2.3 L AST 61 H 62 H ALT 83 H 76 H Lactate Dehydrogenase 270 H 298 H Total Protein 5.7 L Globulin 2.1 L Urine Protein Urine Ketones Urine Nitrate Ur Leukocyte Esterase Urine WBC Urine Bacteria 03/14/20 03/14/20 03/14/20 14:20 14:00 14:00 WBC 11.2 H Gran % 86.2 H Lymph % (Auto) 7.9 L Gran # 9.63 H Lymph # (Auto) 0.88 L Sodium 132 L Chloride 95 L Carbon Dioxide 16 L Anion Gap 21.0 H Creatinine 1.2 H Glucose 106 H Calcium Phosphorus AST 94 H ALT 100 H Lactate Dehydrogenase Total Protein Globulin Urine Protein 100 A Urine Ketones 5/tr A Urine Nitrate Pos A Ur Leukocyte Esterase 500 A Urine WBC > 182 H Urine Bacteria Few A Meds: Medications Al Hydrox/Mg Hydrox/Simethicone (Maalox) 30 ml PO Q4HP PRN PRN Reason: Dyspepsia Albuterol/Ipratropium (Duoneb) 3 ml NEB Q4HRT PRN PRN Reason: dyspnea Ceftriaxone Sodium (Rocephin) 1 gm IV Q24H [facility] Last Admin: 03/16/20 09:00 Dose: 1 gm Documented by: Docusate Sodium (Colace) 100 mg PO BID [facility] Last Admin: 03/16/20 08:42 Dose: 100 mg Documented by: Enoxaparin Sodium (Lovenox) 40 mg SQ DAILY [facility] Last Admin: 03/16/20 08:43 Dose: 40 mg Documented by: Fluoxetine HCl (Prozac) 40 mg PO DAILY [facility] Last Admin: 03/16/20 08:43 Dose: 40 mg Documented by: Hydroxyzine HCl (Vistaril) 10 mg PO BID PRN PRN Reason: Anxiety Last Admin: 03/16/20 08:42 Dose: 10 mg Documented by: Lactulose (Cephulac) 10 gm PO DAILYP PRN PRN Reason: Constipation Lisinopril (Zestril) 10 mg PO DAILY [facility] Last Admin: 03/16/20 08:43 Dose: 10 mg Documented by: Lorazepam (Ativan) 0.5 mg PO HS PRN PRN Reason: Sleep Last Admin: 03/15/20 20:17 Dose: 0.5 mg Documented by: Lorazepam (Ativan) 0.5 mg IV Q4-6HP PRN PRN Reason: ANXIETY/SEDATION Last Admin: 03/15/20 23:23 Dose: 0.5 mg Documented by: Melatonin (Melatonin 3mg Tablet) 3 mg PO QHS [facility] Last Admin: 03/15/20 20:17 Dose: 3 mg Documented by: Omeprazole (Prilosec) 20 mg PO DAILY [facility] Last Admin: 03/16/20 08:43 Dose: 20 mg Documented by: Ondansetron HCl (Zofran) 4 mg IV Q4HP PRN; Protocol PRN Reason: Nausea And Vomiting Senna (Senokot) 2 tab PO HSP PRN PRN Reason: Constipation Sodium Chloride (Saline Flush) 10 ml IV Q8 [facility] Last Admin: 03/16/20 05:50 Dose: 10 ml Documented by: A/P Narrative A/P Narrative: A: *Generalized weakness/deconditioning/fall risk with unsteadiness on her feet: 2/2 volume depletion/uti/polypharmacy -concern for inablity to care for self at home *overnight confusion per staff: probable underlying dementia or psych component -clear when talked to her but odd at times in her affect -CT brain *SSRI Overdose on fluoxetine: States she took between 6 and 8 tablets to help her sleep, these are 20 mg pills. -In reviewing literature fluoxetine tends to be well-tolerated with ingestions of 2-3grams causing only minimal symptoms -Qtc ok, Poison control contacted from the ED. *Insomnia: on ativan qhs prn *Volume depletion: improved *Hyponatremia: resolved *metabolic acidosis, AG: possibly starvation ketoacidosis -salicylates/apap levels ok, BAL neg. lactate wnl -ketones noted in urine -resolved *UTI (GNB): *mild transaminitis: improving *HTN P: -rocephin pending UC -CM for placement needs -pt/ot -ppx: lovenox DNR Time Spent With Patient Time: Total time spent is greater than 50% in coordination of care (as documented) at patient's floor/unit and/or counseling patient: QUALITY VTE Deep Vein Thrombosis/Pulmonary Embolism Present on Admission: No
--- NOTE | 2020-03-16 11:47 | Cat Scan Report ---
CLINICAL INFORMATION: Confusion with decreased mental status COMPARISON: Brain MRI 03/06/2018 TECHNIQUE: 2.5 mm helical slices were obtained in the skull base to vertex. Following reconstruction, axial reformatted images were reviewed at bone and parenchymal windows. The exam was performed using radiation dose optimization techniques including, but not limited to, automated exposure control, adjustment of the mA and/or kV according to patient size and use of iterative reconstruction technique. FINDINGS: The ventricles, sulci, fissures, and cisterns are symmetrically enlarged compatible with mild age-related atrophy. No extra-axial fluid collections are identified. Moderate patchy chronic ischemic changes are noted in the deep cerebral white matter.. There is no evidence of hemorrhage, mass effect, or edema. Bone windows show no osseous abnormality. IMPRESSION: Mild atrophy and moderate patchy chronic ischemic changes in the deep cerebral white matter which have progressed since the brain MRI two years ago. No acute findings Interpreted and Authenticated by: Lamin Martinez 03/16/20
[2020-03-16] MEDS ORDERED: IBUPROFEN 400 MG TABLET PO PRN (18:22)
[2020-03-16] MEDS ORDERED: IBUPROFEN 200 MG TABLET PO PRN (19:00)
[2020-03-16] MEDS: LORazepam 0.5 MG TABLET PO PRN (20:54)
[2020-03-16] MEDS: MELATONIN 3 MG TABLET PO SCH (20:54)
[2020-03-16] MEDS: LORazepam 2 MG/ML VIAL IV PRN (23:08)
[2020-03-17] MEDS: 0.9 % SODIUM CHLORIDE 10 ML SYRINGE IV SCH (05:19)
[2020-03-17] MEDS: DOCUSATE SODIUM 100 MG CAPSULE PO SCH ×2 (08:56→08:59)
[2020-03-17] MEDS: ENOXAPARIN 40 MG/0.4 ML SYRINGE SQ SCH (08:56)
[2020-03-17] MEDS: FLUoxetine HCL 20 MG CAPSULE PO SCH (08:57)
[2020-03-17] MEDS: LISINOPRIL 10 MG TABLET PO SCH (08:57)
[2020-03-17] MEDS: OMEPRAZOLE 20 MG CAPSULE PO SCH (08:57)
[2020-03-17] MEDS: cefTRIAXone 1 GM VIAL IV SCH (08:57)
== END 2020-03-17 10:10 | disposition home health service (06) | DRG 918 ==
LOC: ED 13:27 → ICU 20:55
PROVIDERS: ADMIT Internal Medicine; ATTEND Internal Medicine